=== PATIENT | female | born 1960 | race Caucasian/White ===

== ENCOUNTER 2021-05-24 19:23 | Emergency (ER) | payer MEDICAID, SELFPAY ==
[2021-05-24 19:27] VITALS: BP 140/90; PULSE 114; RESP 16; TEMP 36.4; O2SAT 97; BMI 28.3
--- NOTE | 2021-05-24 20:24 | ED.EYEPROB ---
HPI - Eye Problem General Chief complaint: Eye Problems Stated complaint: eye pain Time Seen by Provider: 05/24/21 20:08 Source: patient Mode of arrival: ambulatory Limitations: no limitations History of Present Illness HPI Narrative: Patient noticed redness on the sclera of the right eye since 13:00 without any straining or coughing had similar episode 3 years ago patient not on any anticoagulants no history of hypertension vital stable Related Data Allergies Allergy/AdvReac Type Severity Reaction Status Date / Time codeine [CODEINE] Allergy Intermediate HALLUCINATI Verified 05/24/21 20:02 ONS Review of Systems Review of Systems: Yes all other systems are reviewed and are negative PMFSH Past Medical History Medical History Asthma Hyperlipemia Social History Social History Advance Directives: No Advance Directives Information Provided: No Patient : No Physical Exam Vital Signs: Vital Signs: Last Vital Signs Temp 97.6 F 05/24/21 19:27 Pulse 114 H 05/24/21 19:27 Resp 16 05/24/21 19:27 BP 140/90 H 05/24/21 19:27 Pulse Ox 97 05/24/21 19:27 Body Mass Index 28.3 Const: General: no acute distress and well developed Orientation/consciousness: patient oriented x3 Eyes: Eyes/upper lids images: 1. Small sub conjunctival hemorrhage normal anterior chamber fundus normal Neuro: General: patient oriented x3 Discharge Plan Discharge Clinical Impression: Subconjunctival hemorrhage Qualifiers: Laterality: right Qualified Code(s): H11.31 - Conjunctival hemorrhage, right eye Patient Disposition: Home, Self-Care Instructions: Subconjunctival Hemorrhage (ED) Additional Instructions: Local care as advised Avoid straining Your redness of the right eye will get better in next 1 week to 10 days
== END 2021-05-24 21:01 | disposition home or self-care (01) ==
PROVIDERS: Emergency Provider Internal Medicine
DX: H11.31 Conjunctival hemorrhage, right eye (principal)
CPT/HCPCS: 99282; 99283; 99284

== ENCOUNTER 2021-06-23 10:36 | Outpatient (REF) | payer MEDICAID, SELFPAY ==
[2021-06-23 11:34] LABS: MANUAL DIFF FLAG NO
[2021-06-23 11:58] LABS: Basophils Percent Auto 0.3 % (0-2); Eosinophils Absolute Auto 0.1 X10*3/uL (0.0-0.4); Hematocrit 43.8 % (37-47); Hemoglobin 14.5 g/dl (12.0-16.0); Imm Gran Abs Auto 0.02 X10*3/uL (0.00-0.03); Imm Gran Pct Auto 0.3 % (0.0-0.4); Lymphocytes Absolute Auto 1.2 X10*3/uL (1.2-4.9); Lymphocytes Percent Auto 17.5 % (20-40); Mean Corpuscular HGB Conc 33.1 g/dl (31.0-35.0); Mean Corpuscular Hemoglobin 31.4 pg (27.0-33.0); Mean Corpuscular Volume 94.8 fL (80-98); Mean Platelet Volume 9.8 fL (9.4-12.3); Monocytes Absolute Auto 0.6 X10*3/uL (0.1-1.2); Monocytes Percent Auto 8.3 % (2-11); Neutrophils Absolute Auto 4.9 X10*3/uL (2.0-8.3); Neutrophils Percent Auto 71.6 % (45-73); Platelet Count 257 X10*3/uL (160-400); Red Blood Count 4.62 X10*6/uL (4.20-5.50); Red Cell Distribution Width 12.5 % (11.0-16.0); White Blood Count 6.9 X10*3/uL (4.8-10.8)
== END 2021-06-23 10:37 | disposition home or self-care (01) ==
LOC: HO.LAB 10:36
PROVIDERS: PCP General Practice; Visit Provider Internal Medicine Pulmonary Disease
DX: Z91.09 Other allergy status, other than to drugs and biological substances (principal); J45.909 Unspecified asthma, uncomplicated; E78.5 Hyperlipidemia, unspecified; Z88.6 Allergy status to analgesic agent
CPT/HCPCS: 36415; 82785; 85025; 86003; 99202

== ENCOUNTER 2021-07-07 09:50 | Outpatient (REF) | payer MEDICAID, SELFPAY ==
--- NOTE | 2021-07-07 10:00 | PFT_ITS ---
INDICATION: Dyspnea. SPIROMETRY: The FEV1 to FVC of 90% with an FEV1 of 1.73 L, which is 86% predicted and an FVC of 1.92 L, which is 74% predicted. No significant response to bronchodilators noted. Maximum voluntary ventilation 89% predicted. LUNG VOLUMES: Total lung capacity 73% predicted with an expiratory reserve volume of only 8% predicted. DIFFUSION CAPACITY: DLCO 100% predicted. COMPARISONS: None. INTERPRETATION: No obstructive ventilatory defect. No significant response to bronchodilators noted. Normal maximum voluntary ventilation. However, the patient does have a mild restrictive ventilatory defect. Therefore, interstitial lung conditions and/or neuromuscular conditions cannot be ruled out. Diffusion capacity is within normal limits. Clinical correlation warranted. Matt Foster MD MR/MODL / [id number]
== END 2021-07-07 09:51 | disposition home or self-care (01) ==
LOC: HO.RESP 09:50
PROVIDERS: PCP General Practice; Visit Provider Internal Medicine Pulmonary Disease
DX: J45.909 Unspecified asthma, uncomplicated (principal)
CPT/HCPCS: 94060; 94727; 94729

== ENCOUNTER 2021-07-22 13:53 | Emergency (ER) | payer MEDICAID, SELFPAY ==
--- NOTE | ~2021-07-22 | XR_ITS ---
EXAMINATION: XR CHEST CLINICAL INFORMATION: Cough with shortness of breath COMPARISON: February 05, 2016 TECHNIQUE: PA view of the chest was obtained. FINDINGS: No significant abnormality is noted involving the heart, lungs, mediastinum, bony thorax or soft tissues. XR/XR chest 1V IMPRESSION: No acute disease.
[2021-07-22 14:07] VITALS: BP 145/93; PULSE 110; RESP 20; TEMP 36.3; O2SAT 99; BMI 28.3
--- NOTE | 2021-07-22 14:25 | ED_ITS ---
HPI - URI/Sore Throat General Chief Complaint: Upper Respiratory Symptoms Stated Complaint: ASTHMA Time Seen by Provider: 07/22/21 14:25 Source: patient Mode of arrival: ambulatory Limitations: no limitations History of Present Illness HPI Narrative: 61-year-old female past medical history significant for asthma, and environmental allergies presents to the emergency department with complaints of productive cough x3 days. She states that the cough is intermittent throughout the day, but appears to be worse at night. She states that the cough is productive of thin clear/white sputum. She states that she has an albuterol pump at home, that she uses at times. She used it twice yesterday, but only once today.. She denies recent sick contacts, chest pain, shortness of breath, rhinorrhea, earache, sore throat, sinus pain/pressure, fevers, chills, nausea, vomiting, abdominal pain, weakness. She does not smoke cigarettes. She is not vaccinated against COVID-19. MD elicited complaint: cough Pertinent past history: asthma Onset (ago): day(s) (3) Consistency: intermittent Severity: moderate Description of mucous: clear and other (white/clear) Able to tolerate fluids by mouth: Yes Exacerbating factors: nothing Relieving factors: nothing Associated symptoms: denies other symptoms Treatments prior to arrival: none Related Data Previous Rx's Medication Instructions Recorded omalizumab 150 mg subcutaneous 375 mg SUBCUT Q2W 28 Days #6 ea 07/06/21 solution (Xolair) prednisone 20 mg tablet 40 mg PO DAILY 5 Days #10 tab 07/22/21 Allergies Allergy/AdvReac Type Severity Reaction Status Date / Time codeine [CODEINE] Allergy Intermediate HALLUCINATI Verified 07/07/21 11:10 ONS Review of Systems Review of Systems: Constitutional : No Weight loss, No Fever, No Chills, No Night Sweats, No Fatigue, No Malaise ENT/Mouth : No Hearing loss, No Ear Pain, No Nasal Congestion, No Sinus Pain, No Hoarseness, No sore throat, No Rhinorrhea, No Swallowing Difficulty Eyes: No Eye Pain, No Swelling, No Redness, No Foreign Body, No Discharge, No Vision Changes Cardiovascular : No Chest Pain, No SOB, No Dyspnea on Exertion, No Orthopnea, No Edema, No Palpitations Respiratory : + Cough, + Sputum, No Wheezing, No Smoke Exposure, No Dyspnea Gastrointestinal : No Nausea, No Vomiting, No Diarrhea, No Constipation, No abdominal Pain, No Hematochezia, No Melena Musculoskeletal : No joint pain, No Myalgias, No Joint SwellingSkin : No Skin Lesions, No rash Neuro : No Weakness, No Numbness, No Paresthesias, No Loss of Consciousness, No Dizziness, No Headache PMFSH Past Medical History Attestation statement: The following information was validated with the patient. Source: old records reviewed and nursing notes reviewed Medical History Asthma Hyperlipemia Social History Social History Advance Directives: No Advance Directives Information Provided: No Physical Exam Vital Signs: Vital Signs: Last Vital Signs Temp 97.4 F 07/22/21 14:07 Pulse 110 H 07/22/21 14:07 Resp 20 07/22/21 14:07 BP 145/93 H 07/22/21 14:07 Pulse Ox 99 07/22/21 14:07 Body Mass Index 28.3 vital signs have been reviewed as normal and appeared to be correct. Blood pressure normal. Heart rate slightly elevated 110. Respiration rate normal. Temperature normal. Oxygen saturation normal. Appearance: Alert. Oriented X3. No acute distress. No accessory muscle use Head: Normal external exam. Normocephalic. Atraumatic. Eyes: PERRLA. EOMI. Conjunctiva and sclera normal. Eyelids normal. ENT: Pharynx normal. Uvula midline. Moist mucous membranes. No trismus noted. No drooling noted. No muffled voice noted. Neck: Soft full range of motion, no JVD CVS: Heart regular rate and rhythm no murmurs and rubs Respiratory: Breath sounds are clear to auscultation bilaterally. No wheezing or stridor. No accessory muscle use noted. Abdomen: Soft nontender no rebound or guarding positive bowel sounds Skin: Skin warm and dry. Normal skin color. Normal skin turgor. No rashes/lesions/lacerations noted. Extremities: No lower extremity edema. Extremities exhibit normal range of motion. Extremities nontender. Neuro: Oriented X 3. No motor deficit. No sensory deficit. Reflexes normal. Course Reevaluation(s) Reevaluation #1: COVID negative. MDM - URI/Sore Throat MDM Narrative Medical decision making narrative: 61 yo female pas medical history significant for seasonal allergies, and asthma presents to the emergency department with 3 days of productive cough of white, thin clear/white sputum. She states that the cough is worse at night. Denies fevers, chills, chest pain, shortness of breath. Patient is not a smoker. Not vaccinated against COVID-19. Denies sick contacts. Upon physical examination lungs are clear bilaterally, no wheezes or adventitious lung sounds noted, S1 and S2 appreciated free of murmurs. No focal neuro deficits 5/5 strength upper and lower extremities. 2+ pulses equal bilateral upper and lower extremities. Abdomen soft nontender nondistended. No rhinorrhea noted. Moist mucous membranes. Patient is noted to be hypertensive, tachycardic, likely secondary to albuterol use. Plan at this time is to obtain a chest x-ray to rule out pneumonia, she will also be checked for COVID-19. Lab Data Labs: Lab Results 07/22/21 Range/Units 14:14 COVID-19 (DEREK) Negative (Negative) COVID-19 Clin Com See Note Imaging Data Chest x-ray: Radiologist's impression: [address] [address] XRay Report Signed Patient: Angy Tierney MR#: [id number] : 1960 Acct:[id number] Age/Sex: 61 / F ADM Date: 07/22/21 Loc: .ED Attending Dr: Ordering Physician: Micheal Berrios Date of Service: 07/22/21 Procedure(s): XR chest 1V Accession Number(s): [id number] cc: Micheal Berrios ~ EXAMINATION: XR CHEST CLINICAL INFORMATION: Cough with shortness of breath COMPARISON: February 05, 2016 TECHNIQUE: PA view of the chest was obtained. FINDINGS: No significant abnormality is noted involving the heart, lungs, mediastinum, bony thorax or soft tissues. XR/XR chest 1V IMPRESSION: No acute disease. ? Dictated By: Cordell Pretty MD Signed By: <Electronically signed by Cordell Pretty MD in OV> 07/22/21 1607 DD/ 1425 TD/TT:? [employer] Operator: SK Discharge Plan Discharge Clinical Impression: Cough, Bronchitis Patient Disposition: Home, Self-Care Instructions: Acute Bronchitis (ED), Acute Cough (ED) Additional Instructions: Follow-up with your primary care provider Use your inhaler at home as needed and as instructed. Return to the emergency department with new or worsening symptoms. Prescriptions: New prednisone 20 mg tablet 40 mg PO DAILY 5 Days Qty: 10 RF: 0 No Action Xolair 150 mg recon soln 375 mg subcut Q2W 28 Days Qty: 6 RF: 12 Referrals: Patricia Douglass MD [Primary Care Provider] - 2 days
[2021-07-22 14:33] LABS: COVID-19 Test Negative (Negative)
== END 2021-07-22 16:18 | disposition home or self-care (01) ==
PROVIDERS: Emergency Provider Emergency Medicine; PCP General Practice
DX: J40 Bronchitis, not specified as acute or chronic (principal); J45.909 Unspecified asthma, uncomplicated; Z20.822 Contact with and (suspected) exposure to COVID-19
CPT/HCPCS: 36415; 71045; 87635; 99283

== ENCOUNTER → 2021-08-16 10:02 | Outpatient (BNVA) | payer MEDICAID, SELFPAY | PROVIDERS: PCP General Practice; Visit Provider Internal Medicine Pulmonary Disease | DX: J45.909 Unspecified asthma, uncomplicated (principal); Z91.09 Other allergy status, other than to drugs and biological substances | CPT/HCPCS: 99212 ==

== ENCOUNTER → 2021-12-15 10:20 | Outpatient (BNVA) | payer MEDICAID, SELFPAY | PROVIDERS: PCP General Practice; Visit Provider Internal Medicine Pulmonary Disease | DX: Z13.89 Encounter for screening for other disorder (principal) ==

== ENCOUNTER 2021-12-30 10:46 | Outpatient (REF) | payer MEDICAID, SELFPAY | END 2021-12-30 10:47 | disposition home or self-care (01) | LOC: HO.MDS 10:46 | PROVIDERS: Visit Provider Internal Medicine Pulmonary Disease | DX: J45.50 Severe persistent asthma, uncomplicated (principal) | CPT/HCPCS: 96372; J2357 ==

== ENCOUNTER 2022-01-14 10:17 | Outpatient (REF) | payer MEDICAID, SELFPAY | END 2022-01-14 10:18 | disposition home or self-care (01) | LOC: HO.MDS 10:17 | PROVIDERS: Visit Provider Internal Medicine Pulmonary Disease | DX: J45.50 Severe persistent asthma, uncomplicated (principal) | CPT/HCPCS: 96372; J2357 ==

== ENCOUNTER → 2022-01-20 10:40 | Outpatient (BNVA) | payer MEDICAID, SELFPAY | PROVIDERS: PCP General Practice; Visit Provider Internal Medicine Pulmonary Disease | DX: J45.909 Unspecified asthma, uncomplicated (principal); Z91.09 Other allergy status, other than to drugs and biological substances | CPT/HCPCS: 99212 ==

== ENCOUNTER 2022-01-28 10:26 | Outpatient (REF) | payer MEDICAID, SELFPAY | END 2022-01-28 10:27 | disposition home or self-care (01) | LOC: HO.MDS 10:26 | PROVIDERS: Visit Provider Internal Medicine Pulmonary Disease | DX: J45.50 Severe persistent asthma, uncomplicated (principal) | CPT/HCPCS: 96372; J2357 ==

== ENCOUNTER 2022-02-11 14:07 | Outpatient (REF) | payer MEDICAID, SELFPAY | END 2022-02-11 14:08 | disposition home or self-care (01) | LOC: HO.MDS 14:07 | PROVIDERS: Visit Provider Internal Medicine Pulmonary Disease | DX: J45.50 Severe persistent asthma, uncomplicated (principal) | CPT/HCPCS: 96372; J2357 ==

== ENCOUNTER 2022-02-25 11:48 | Outpatient (REF) | payer MEDICAID, SELFPAY | END 2022-02-25 11:49 | disposition home or self-care (01) | LOC: HO.MDS 11:48 | PROVIDERS: Visit Provider Internal Medicine Pulmonary Disease | DX: J45.50 Severe persistent asthma, uncomplicated (principal) | CPT/HCPCS: 96372; J2357 ==

== ENCOUNTER 2022-03-11 11:43 | Outpatient (REF) | payer MEDICAID, SELFPAY | END 2022-03-11 11:44 | disposition home or self-care (01) | LOC: HO.MDS 11:43 | PROVIDERS: Visit Provider Internal Medicine Pulmonary Disease | DX: J45.50 Severe persistent asthma, uncomplicated (principal) | CPT/HCPCS: 96372; J2357 ==

== ENCOUNTER 2022-03-25 12:19 | Outpatient (REF) | payer MEDICAID, SELFPAY | END 2022-03-25 12:20 | disposition home or self-care (01) | LOC: HO.MDS 12:19 | PROVIDERS: Visit Provider Internal Medicine Pulmonary Disease | DX: J45.50 Severe persistent asthma, uncomplicated (principal) | CPT/HCPCS: 96372; J2357 ==

== ENCOUNTER 2022-07-25 13:20 | Outpatient (REF) | payer MEDICAID, SELFPAY ==
--- NOTE | ~2022-07-25 | XR_ITS ---
EXAMINATION: LEFT FIFTH DIGIT CLINICAL INFORMATION: Pain COMPARISON: None TECHNIQUE: 3 views FINDINGS: No fracture, dislocation or destructive process. XR/XR hand wrist LT IMPRESSION: Negative
== END 2022-07-25 13:21 | disposition home or self-care (01) ==
LOC: HO.XRAY 13:20
PROVIDERS: Absent Provider General Practice; PCP General Practice; Visit Provider Emergency Medicine
DX: M79.645 Pain in left finger(s) (principal); M79.89 Other specified soft tissue disorders
CPT/HCPCS: 73110; 73130

== ENCOUNTER 2023-07-25 11:36 | Outpatient (REF) | payer MEDICAID, SELFPAY ==
[2023-07-25 14:13] LABS: Anion Gap 12 (12-20); Blood Urea Nitrogen 13 mg/dL (9-16); Calcium 9.6 mg/dL (8.4-10.2); Carbon Dioxide 23 mmol/L (22-29); Chloride 110 mmol/L (96-108); Estimated Glomerular Filt Rate > 60; Glucose Random 123 mg/dL (60-115); Potassium 3.9 mmol/L (3.3-5.1); Sodium 141 mmol/L (135-145)
== END 2023-07-25 11:37 | disposition home or self-care (01) ==
LOC: HO.HHCL 11:36
PROVIDERS: Visit Provider General Practice
DX: R42 Dizziness and giddiness (principal); R10.9 Unspecified abdominal pain
CPT/HCPCS: 36415; 80048; 87338

== ENCOUNTER 2023-07-25 13:32 | Outpatient (REF) | payer MEDICAID, SELFPAY | END 2023-07-25 13:33 | disposition home or self-care (01) | LOC: HO.HHCLNP 13:32 | PROVIDERS: Visit Provider General Practice | DX: R10.9 Unspecified abdominal pain (principal) | CPT/HCPCS: 87338 ==

== ENCOUNTER 2023-07-26 11:53 | Outpatient (REF) | payer MEDICAID, SELFPAY | END 2023-07-26 11:54 | disposition home or self-care (01) | LOC: HO.HHCLNP 11:53 | PROVIDERS: Visit Provider General Practice | DX: Z13.89 Encounter for screening for other disorder (principal) ==

== ENCOUNTER 2024-01-22 10:30 | Outpatient (REF) | payer MEDICAID, SELFPAY ==
[2024-01-22 11:40] LABS: Estimated Average Glucose 128 mg/dL; Hemoglobin A1c % 6.1 % (<6.0)
[2024-01-22 12:14] LABS: Anion Gap 16 (12-20); Blood Urea Nitrogen 10 mg/dL (9-16); Calcium 10.3 mg/dL (8.4-10.2); Carbon Dioxide 24 mmol/L (22-29); Chloride 107 mmol/L (96-108); Cholesterol 246 mg/dL (<200); Estimated Glomerular Filt Rate > 60; Glucose Random 145 mg/dL (60-115); HDL Cholesterol 48 mg/dL (>40); LDL Cholesterol Calculated 168 mg/dL (<100); Potassium 4.1 mmol/L (3.3-5.1); Sodium 143 mmol/L (135-145); Triglycerides 153 mg/dL (<150)
[2024-01-22 12:31] LABS: TSH reflex Free T4 0.78 uIU/mL (0.32-4.0)
== END 2024-01-22 10:31 | disposition home or self-care (01) ==
LOC: HO.HHCL 10:30
PROVIDERS: Visit Provider General Practice
DX: Z00.00 Encounter for general adult medical examination without abnormal findings (principal)
CPT/HCPCS: 36415; 80048; 80061; 83036; 84443

== ENCOUNTER 2024-11-26 14:03 | Outpatient (REF) | payer MEDICAID, SELFPAY ==
--- NOTE | ~2024-11-26 | XR_ITS ---
EXAMINATION: XR FOOT 3 OR MORE VIEWS LEFT HISTORY: acute pain COMPARISON: Comparison is made with the prior examination dated 05/20/2016. FINDINGS: Three views of the left foot are submitted. Osseous mineralization is normal. There is no fracture or dislocation. The joint spaces are preserved. There is a soft tissue calcification at the plantar aspect of the foot without change. XR/XR foot LT min 3V IMPRESSION: No acute abnormality. No evidence of fracture of the left foot. Electronically signed by: Luis A Chou MD 11/26/2024 02:32 PM EDT
--- OUTSIDE RECORDS SUMMARY | 2024-11-26 17:13 | XMS_ITS | Encounter Summary ---
Author Organization [employer] Address [address] [place] [address] Care Team Providers Care Guard Museum Name Role Phone Patricia Douglass MD Primary Care Provider [phone] Reason for Visit * Reason Onset Date Comments recall 11/07/2024 Encounter Details Date Type Department Care Team ([facility] st Contact Info) Description 11/07/2024 Telephone [facility] MEDICINE [address] [place] [address] Patricia Douglass MD [address] [place], [place] [phone] recall Social History Tobacco Use Types Packs/Day Years Used Date Smoking Tobacco: Never Smokeless Tobacco: Never Alcohol Use Standard Drinks/Week Comments Never 0 (1 standard drink = 0.6 oz pur e alcohol) Depression Answer Date Recorded Patient Health Questionnaire-9 Score 10 03/25/2024 Patient Health Questionnaire-9 Score 10 03/25/2024 Last PHQ-9: Questionnaire Data Not on file 0 03/25/2024 Housing Stability Answer Date Recorded What is your housing situation today? I have housing today, but I am worried about losing housing in the future 01/19/[address] you li ve. Do you have problems with any of the following? None of the above 01/19/2024 Food Insecurity Answer Date Recorded Within the past 12 months, y ou worried that your food would run out before you got money to buy more: Sometimes True 2023 Within the past 12 months,th e food you bought just didn't last and you didn't have enough money to get more: Never True 01/19/2024 Transportation Answer Date Recorded In the past 12 months, has l ack of transportation kept you from medical appts, meetings, work or from getting things needed for daily living? No 07/17/2023 Utilities Answer Date Recorded In the past 12 months, has t he electric, gas, oil or water company threatened to shut off services in your home? I am not sure 01/19/2024 Depression Answer Date Recorded Patient Health Questionnaire-2 Score 3 03/25/2024 Comments Unknown Sex and Gender Information Value Date Recorded Sex Assigned at Female 07/18/2022 10:14 AM EDT Legal Sex Female 10:14 AM EDT Gender Identity Female 07/18/2022 10:14 AM EDT Sexual Orientation Straight 07/18/2022 10 :14 AM EDT documented as of this encounter Miscellaneous Notes * Telephone Encounter - Laurita Cohen MA - 11/07/2024 1:45 PM EST Telephone call to patient to schedule a recall appointment. No answer, Left voicemail to return call to clinic.. Recall letter sent. Visit type: Physical Appointment notes: Physical Month due: January With: Rafat Please schedule appointment above if patient returns call documented in this encounter Plan of Treatment Not on file documented as of this encounter Visit Diagnoses Not on filedocumented in this encounter Additional Health Concerns Assessment Noted Time PHQ-9 Depression Total Score: 10 024 10:49 AM EDT documented as of this encounter Care Teams Guard Museum Relationship Specialty Start Date End Date Patricia Douglass MD [address] [place] [id number] PCP - General Family Medicine 05/18/20 documented as of this encounter
--- OUTSIDE RECORDS SUMMARY | 2024-11-26 17:13 | XMS_ITS | Encounter Summary ---
Author Organization [employer] Address [address] [place] [address] Care Team Providers Care Ip Attorney Name Role Phone Patricia Douglass MD Primary Care Provider [phone] Reason for Visit * Reason Comments Med Refill Encounter Details Date Type Department Care Team (Late st Contact Info) Description 08/18/2024 Refill [facility] MEDICINE [address] [place], [place] [phone] Patricia Douglass MD [address] [place], [place] [phone] Gastroesophageal reflux disease with esophagitis without hemorrhage Social History Tobacco Use Types Packs/Day Years [...] AM EDT documented as of this encounter Plan of Treatment Not on file documented as of this encounter Visit Diagnoses Diagnosis Gastroesophageal reflux disease with esophagitis without hemorrhage documented in this encounter Additional Health Concerns Assessment Noted Time PHQ-9 Depression Total Score: 10 024 10:49 AM EDT documented as of this encounter Care Teams Ip Attorney Relationship Specialty Start Date End Date Patricia Douglass MD [address] [place] [id number] PCP - General Family Medicine 05/18/20 documented as of this encounter
--- OUTSIDE RECORDS SUMMARY | 2024-11-26 17:13 | XMS_ITS | Encounter Summary ---
Author Organization [employer] Address [address] [place] [address] Care Team Providers Care Mercerizing Range Controller Name Role Phone Patricia Douglass MD Primary Care Provider [phone] Encounter Details Date Type Department Care Team (Late st Contact Info) Description 08/08/2023 Abstract [facility] MEDICINE [address] [place], [place] [phone] Ary Wilson Social History Tobacco Use Types Packs/Day Years Used Date Smoking Tobacco: Never Smokeless Tobacco: Never Depression Answer Date Recorded Patient Health Questionnaire-9 Score 4 07/17/2023 Patient Health Questionnaire-9 Score 4 07/17/2023 Last PHQ-9: Questionnaire Data Not on file 1 Housing Stability Answer Date Recorded What is your housing situation today? I have agustin bray 07/17/[address] you li ve. Do you have problems with any of the following? None of the above 07/17/2023 Food Insecurity Answer Date Recorded Within the past 12 months, y ou worried that your food would run out before you got money to buy more: Never True 07/17/2023 Within the past 12 months,th e food you bought just didn't last and you didn't have enough money to get more: Never True Transportation Answer Date Recorded In the past 12 months, has l ack of transportation kept you from medical appts, meetings, work or from getting things needed for daily living? No 07/17/2023 Utilities Answer Date Recorded In the past 12 months, has t he electric, gas, oil or water company threatened to shut off services in your home? No 07/17/2023 Depression Answer Date Recorded Patient Health Questionnaire-2 Score 0 07/17/2023 Comments Unknown Sex and Gender Information Value Date Recorded Sex Assigned at Female 07/18/2022 10:14 AM EDT Legal Sex Female 10:14 AM EDT Gender Identity Female 07/18/2022 10:14 AM EDT Sexual Orientation Straight 07/18/2022 10 :14 AM EDT documented as of this encounter Plan of Treatment Not on file documented as of this encounter Procedures Procedure Name Priority Date/Time Associated Diagnosis Comments COLONOSCOPY Routine 03/26/2013 documented in this encounter Results * Hm Colonoscopy (03/26/2013) Colonoscopy Normal Normal Narrative Ary Wilson - 03/26/2013 Repeat in 5 years us Historical Provider HEALTH MAINTENANCE Final Result documented in this encounter Visit Diagnoses Not on filedocumented in this encounter Additional Health Concerns Assessment Noted Time PHQ-9 Depression Total Score: 4 07/17/20 23 11:02 AM EDT documented as of this encounter Care Teams Mercerizing Range Controller Relationship Specialty Start Date End Date Patricia Douglass MD [address] [place] [address] PCP - General Family Medicine 05/18/20 documented as of this encounter
--- OUTSIDE RECORDS SUMMARY | 2024-11-26 17:13 | XMS_ITS | Encounter Summary ---
Author Organization [employer] Address [address] [place] [address] Care Team Providers Care Charge Weigher Name Role Phone Patricia Douglass MD Primary Care Provider [phone] Encounter Details Date Type Department Care Team (Late st Contact Info) Description 08/07/2023 Orders Only [facility] MEDICINE [address] [place], [place] [phone] Patricia Douglass MD [address] [place], [place] [phone] Gastroesophageal reflux disease with esophagitis without hemorrhage (Primary Dx) Social History Tobacco Use Types Packs/Day Years [...] Diagnosis Gastroesophageal reflux disease with esophagitis without hemorrhage- Primary documented in this encounter Additional Health Concerns Assessment Noted Time PHQ-9 Depression Total Score: 4 07/17/20 23 11:02 AM EDT documented as of this encounter Care Teams Charge Weigher Relationship Specialty Start Date End Date Patricia Douglass MD [address] [place] [address] PCP - General Family Medicine 05/18/20 documented as of this encounter
--- OUTSIDE RECORDS SUMMARY | 2024-11-26 17:14 | XMS_ITS | Encounter Summary ---
Author Organization [employer] Address [address] [facility] [address] [place] [address] Care Team Providers Care Technician Name Role Phone Patricia Douglass MD Primary Care Provider [phone] Reason for Referral * Consultation (Urgent) - Pending Review Specialty Diagnoses / Procedures Referred By Leodan velazquez Referred To Contact Podiatry Diagnoses Pain of left heel Janice Baum MD [address] [place] [id number] Phone: tel: fax: Referral ID Status Reason Start Date Expiration Date Visits Requested Visits Authorized [id number] Pending Review Specialty Services Required 11/26/2024 11/26/2025 1 1 Encounter Details Date Type Department Care Team (Late st Contact Info) Description 11/26/2024 1:20 PM EDT Office Visit [facility] [address] [place] [id number] Janice Baum MD [address] [place] [phone] Pain of left heel Social History Tobacco Use Types Packs/Day Years [...] AM EDT documented as of this encounter Last Filed Vital Signs Vital Sign Reading Time Taken Comments Blood Pressure 143/97 11/26/2024 1:18 PM EDT Pulse 100 11/26/2024 1:18 PM EDT Temperature 36.6 ??C (97.8 ??F) 11/26/2024 1:18 PM ED T Respiratory Rate 20 11/26/2024 1:18 PM EDT Oxygen Saturation 96% 11/26/2024 1:18 PM EDT Inhaled Oxygen Concentration - - Weight 62.6 kg (138 lb) 11/26/2024 1:18 PM EDT Height 149.9 cm (4' 11 ) 11/26/2024 1:18 PM EDT Body Mass Index 27.87 11/26/2024 1:18 PM EDT documented in this encounter Progress Notes * Janice Johns MD - 11/26/2024 1:20 PM EDT Images from the original note were not included. SUBJECTIVE: Angy Tierney is a 64 y.o. year old female who presents for left heel pain . Acute Concerns: 2 weeks of acute left heel pain, report pain when she bears weight on the area, she has tried acetaminophen, ibuprofen and many creams but did not help Social History Social History Narrative Lives alone retired Patient Active Problem List Diagnosis Anxious depression Allergic rhinitis Arthropathy Asthma Functional disorder of bladder Impaired glucose tolerance Pure hypercholesterolemia Varicose veins Mixed anxiety and depressive disorder Other fatigue Cold intolerance Osteopenia of hip Primary insomnia Depression, recurrent (CMS/HCC) Pain of left heel No family history on file. Review of Systems Constitutional: Negative. HENT: Negative. Respiratory: Negative. Cardiovascular: Negative. Musculoskeletal: Left heel pain OBJECTIVE: Vitals: 11/26/24 1318 BP: (!) 143/97 BP Location: Left arm Patient Position: Sitting BP Cuff Size: Adult Pulse: 100 Resp: 20 Temp: 97.8 ??F (36.6 ??C) TempSrc: Oral SpO2: 96% Weight: 138 lb (62.6 kg) Height: 4' 11 (1.499 m) Physical Exam Constitutional: Appearance: Normal appearance. Cardiovascular: Rate and Rhythm: Normal rate and regular rhythm. Pulmonary: Effort: Pulmonary effort is normal. Breath sounds: Normal breath sounds. Abdominal: General: Abdomen is flat. Palpations: Abdomen is soft. Musculoskeletal: Feet: Feet: Comments: Localized pain on the left heel Neurological: Mental Status: She is alert. Follow Up: No follow-ups on file. Current Outpatient Medications on File Prior to Visit Medication Sig Dispense Refill albuterol (2.5 MG/3ML) 0.083% nebulizer solution INHALE 3ML VIA NEBULIZER THREE TIMES A DAY 90 mL 11 diphenhydrAMINE (Banophen) 25 MG tablet Take 1 tablet by mouth every 4 (four) hours. FLUoxetine (PROzac) 20 MG capsule Take 1 capsule (20 mg) by mouth Once daily. 90 capsule 3 fluticasone-salmeterol (Advair HFA) 230-21 MCG/ACT inhaler INHALE 2 PUFFS BY MOUTH TWICE DAILY IN THE MORNING AND IN THE EVENING 12 g 11 ibuprofen 600 MG tablet TAKE 1 TABLET BY MOUTH EVERY 8 HOURS NEEDED FOR MILD PAIN 60 tablet 3 LORazepam (Ativan) 0.5 MG tablet Take 0.5 tablets (0.25 mg) by mouth every 12 (twelve) hours if needed for anxiety. 30 tablet 5 meclizine (Antivert) 25 MG tablet TAKE 1 TABLET BY MOUTH THREE TIMES DAILY IN THE MORNING, AT NOON,AND AT BEDTIME FOR DIZZINESS 30 tablet 3 Menthol-Methyl Salicylate (Thera-Gesic) 0.5-15 % cream massage into affected part of R arm two times a day montelukast (Singulair) 10 MG tablet TAKE 1 TABLET BY MOUTH DAILY IN THE MORNING 90 tablet 3 nortriptyline (Pamelor) 10 MG capsule Take 1 capsule (10 mg) by mouth at bedtime. 90 capsule 3 omalizumab (Xolair) 150 MG/ML injection Inject under the skin every 4 (four) weeks. rosuvastatin (Crestor) 20 MG tablet Take 1 tablet (20 mg) by mouth Once per day. 90 tablet 3 Ventolin HFA 108 (90 Base) MCG/ACT inhaler INHALE 2 PUFFS NEEDED IN THE MORNING, NOON, IN THE EVENING, AND AT BEDTIME FOR FOR WHEEZING OR SHORTNESS OF BREATH 18 g 11 No current facility-administered medications on file prior to visit. Problem List Items Addressed This Visit Pain of left heel Likely hill sprue/plantar fasciitis I will prescribe diclofenac gel to apply twice a day as needed Alternate acetaminophen and ibuprofen as needed I printed for patient information about her condition and to do exercise at home I refer patient to podiatry Relevant Medications Diclofenac Sodium 1 % gel Other Relevant Orders XR Foot 3+ Views Left (Completed) Referral to Podiatry documented in this encounter Miscellaneous Notes * Assessment & Plan Note - Janice Johns MD - 11/26/2024 4:02 PM EDT Associated Problem(s): Pain of left heel Likely hill sprue/plantar fasciitis I will prescribe diclofenac gel to apply twice a day as needed Alternate acetaminophen and ibuprofen as needed I printed for patient information about her condition and to do exercise at home I refer patient to podiatry documented in this encounter Plan of Treatment Scheduled Referrals Name Type Priority Associated Diagnoses Orde r Schedule Referral to Podiatry Outpatient Referral Urgent Pain of left heel Expected: 11/26/2024 (Approximate), Expires: 11/26/2025 documented as of this encounter Procedures Procedure Name Priority Date/Time Associated Diagnosis Comments XR FOOT 3+ VIEWS LEFT Routine 11/26/2024 2:04 PM EDT Pain of left heel documented in this encounter Results * XR Foot 3+ Views Left (11/26/2024 2:04 PM EDT) Anatomical Region Laterality Modality Lower Extremities, Foot Left Radiogra phic Imaging 11/26/2024 2:04 PM EDT Narrative 11/26/2024 2:35 PM EDT ?[facility] ?[address] ?[place] [address] ?XRay Report ? Signed ? Patient: Angy Tierney ?MR#: [id number] ?? [id number] ? : 1960 ?Acct:[id number] ? Age/Sex: 64 / F ?ADM Date: 11/26/24 ? Loc: HO.HHCX ? Attending Dr: Janice Johns MD ? Ordering Physician: Janice Baum MD ?? Date of Service: 11/26/24 ?? Procedure(s): XR foot LT min 3V ?? Accession Number(s): [id number] ? cc: Janice Baum MD ? EXAMINATION: ??XR FOOT 3 OR MORE VIEWS LEFT ? HISTORY: acute pain ? COMPARISON: Comparison is made with the prior examination dated ?? 05/20/2016. ? FINDINGS: ? Three views of the left foot are submitted. ??Osseous mineralization is ?? normal. ??There is no fracture or dislocation. ??The joint spaces are ?? preserved. ??There is a soft tissue calcification at the plantar aspect ?? of the foot without change. ? XR/XR foot LT min 3V ?? IMPRESSION: ? No acute abnormality. No evidence of fracture of the left foot. ? Electronically signed by: ??Luis A Chou MD ??11/26/2024 02:32 PM EDT ?? RP ? Dictated By: ?Luis A Chou MD ? Signed By: ?<Electronically signed by Luis A Chou MD in OV> ?11/26/24 1432 ? DD/ 1404 ? TD/TT: 11/26/24 1420 ? [employer]: ? Procedure Note Donbob, Image - 11/26/[address] [address] XRay Report Signed Patient: Wale Tierney#: [id number] : 9Acct:[id number] Age/Sex: 64 / FADM Date: 11/26/24 Loc: HO.HHCX Attending Dr: Janice Johns MD Ordering Physician: Janice Baum MD Date of Service: 11/26/24 Procedure(s): XR foot LT min 3V Accession Number(s): [id number] cc: Janice Baum MD EXAMINATION: XR FOOT 3 OR MORE VIEWS LEFT HISTORY: acute pain COMPARISON: Comparison is made with the prior examination dated 05/20/2016. FINDINGS: Three views of the left foot are submitted. Osseous mineralization is normal. There is no fracture or dislocation. The joint spaces are preserved. There is a soft tissue calcification at the plantar aspect of the foot without change. XR/XR foot LT min 3V IMPRESSION: No acute abnormality. No evidence of fracture of the left foot. Electronically signed by: Luis A Chou MD 11/26/2024 02:32 PM EDT Dictated By: Luis A Chou MD Signed By: <Electronically signed by Luis A Chou MD in OV> 11/26/24 1432 DD/ 1404 TD/TT: 11/26/24 1420 [employer]: Janice Johns MD IMG XR PROCEDURES Fin al Result documented in this encounter Visit Diagnoses Diagnosis Pain of left heel documented in this encounter Additional Health Concerns Assessment Noted Time PHQ-9 Depression Total Score: 10 024 10:49 AM EDT documented as of this encounter Care Teams Technician Relationship Specialty Start Date End Date Patricia Douglass MD [address] [place] [address] PCP - General Family Medicine 05/18/20 documented as of this encounter
--- OUTSIDE RECORDS SUMMARY | 2024-11-26 17:14 | XMS_ITS | Encounter Summary ---
Author Organization [employer] Address [address] [place] [address] Care Team Providers Care Flarer Name Role Phone Patricia Douglass MD Primary Care Provider [phone] Reason for Visit * Reason Comments Med Refill Encounter Details Date Type Department Care Team (Late st Contact Info) Description 03/03/2024 Refill [facility] [address] [place] [address] Jalen Herring FNP Anxious depression Social History Tobacco Use Types Packs/Day Years Used Date Smoking Tobacco: Never Smokeless Tobacco: Never Depression Answer Date Recorded Patient Health Questionnaire-9 Score 7 01/23/2024 Patient Health Questionnaire-9 Score 7 01/23/2024 Last PHQ-9: Questionnaire Data Not on file 0 01/23/2024 Housing Stability Answer Date Recorded What is [...] Answer Date Recorded Patient Health Questionnaire-2 Score 1 01/23/2024 Comments Unknown Sex and Gender Information Value Date Recorded Sex Assigned at Female 07/18/2022 10:14 AM EDT Legal Sex Female 10:14 AM EDT Gender Identity Female 07/18/2022 10:14 AM EDT Sexual Orientation Straight 07/18/2022 10 :14 AM EDT documented as of this encounter Plan of Treatment Not on file documented as of this encounter Visit Diagnoses Diagnosis Anxious depression documented in this encounter Additional Health Concerns Assessment Noted Time PHQ-9 Depression Total Score: 7 01/23/20 24 10:45 AM EDT documented as of this encounter Care Teams Flarer Relationship Specialty Start Date End Date Patricia Douglass MD [address] [place] [phone] PCP - General Family Medicine 05/18/20 documented as of this encounter
--- OUTSIDE RECORDS SUMMARY | 2024-11-26 17:14 | XMS_ITS | Clinical Summary ---
Author Organization [employer] Address [address] [place] [address] [address] [place] [address] Care Team Providers Care Lamination Technician Name Role Phone Patricia Douglass MD Primary Care Provider [phone] Allergies Active Allergy Reactions Criticality Noted Date Comments Chlorpheniramine 01/25/2012 Other reaction(s): anxiety Codeine 01/25/2012 Other reaction(s): anxiety Phenylephrine 01/25/2012 Other reaction(s): anxiety Medications diphenhydrAMINE (Banophen) 25 MG tablet Take 1 tablet by mouth every 4 (four) hours. 1 Active Menthol-Methyl Salicylate (Thera-Gesic) 0.5-15 % cream massage into affected part of R arm two times a day 1 Active omalizumab (Xolair) 150 MG/ML injection Inject under the skin every 4 (four) weeks. Active ibuprofen 600 MG tablet TAKE 1 TABLET BY MOUTH EVERY 8 HOURS NEEDED FOR MILD PAIN 60 tablet 3 4 Active montelukast (Singulair) 10 MG tablet TAKE 1 TABLET BY MOUTH DAILY IN THE MORNING 90 tablet 3 4 Active albuterol (2.5 MG/3ML) 0.083% nebulizer solution INHALE 3ML VIA NEBULIZER THREE TIMES A DAY 90 mL 11 4 Active Ventolin HFA 108 (90 Base) MCG/ACT inhaler INHALE 2 PUFFS NEEDED IN THE MORNING, NOON, IN THE EVENING, AND AT BEDTIME FOR FOR WHEEZING OR SHORTNESS OF BREATH 18 g 11 4 Active meclizine (Antivert) 25 MG tablet TAKE 1 TABLET BY MOUTH THREE TIMES DAILY IN THE MORNING, AT NOON, AND AT BEDTIME FOR DIZZINESS 30 tablet 3 4 Active LORazepam (Ativan) 0.5 MG tabletIndicatio ns:Anxious depression Take 0.5 tablets (0.25 mg) by mouth every 12 (twelve) hours if needed for anxiety. 30 tablet 5 4 Active nortriptyline (Pamelor) 10 MG capsule Take 1 capsule (10 mg) by mouth at bedtime. 90 capsule 3 4 Active fluticasone-claribel meterol (Advair HFA) 230-21 MCG/ACT inhaler INHALE 2 PUFFS BY MOUTH TWICE DAILY IN THE MORNING AND IN THE EVENING 12 g 11 4 Active rosuvastatin (Crestor) 20 MG tablet Take 1 tablet (20 mg) by mouth Once per day. 90 tablet 3 4 Active FLUoxetine (PROzac) 20 MG capsuleIndicati ons:Anxious depression Take 1 capsule (20 mg) by mouth Once daily. 90 capsule 3 4 Active Diclofenac Sodium 1 % gelIndications: Pain of left heel Apply 1 Application topically every 12 (twelve) hours if needed (apply on affected area). 150 g 1 5 Active Active Problems Problem Noted Date Diagnosed Date Pain of left heel 11/26/2024 Assessment & Plan (11/26/2024 4:02 PM EDT): Likely hill sprue/plantar fasciitis I will prescribe diclofenac gel to apply twice a day as needed Alternate acetaminophen and ibuprofen as needed I printed for patient information about her condition and to do exercise at home I refer patient to podiatry Depression, recurrent 05/27/2024 Osteopenia of hip 01/24/2024 Primary insomnia 01/24/2024 Other fatigue 01/13/2023 Assessment & Plan (01/13/2023 11:08 AM EDT): Labs today Walk daily, if possible Cold intolerance 01/13/2023 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 Continue Nortriptyline 10 mg at bedtime, Fluoxetine 20 mg (so will be cognizant of risk of drug interaction and serotonin syndrome, and limit to lowest effective doses). Also continue Lorazepam 0.5 mg 1/2 tab BID prn, and Zolpidem 5 mg at bedtime prn. F/U with therapist as usual and may be referred to agency prescriber. Otherwise, patient's PCP will manage her medications. Any issues or concerns, contact [facility]. All her questions were answered and I have wished her well. She agrees with the plan. Assessment & Plan (01/23/2024 11:56 AM EDT): Currently very anxious about impending switch to Medicare coverage and didn't understand coverage options. Will contact Medicare office and ask about Advant[employer] plans. Once this is in place she will be able to start with agency psychiatric prescriber. Meanwhile, continue current regimen: Nortriptyline 10 mg at bedtime, Fluoxetine 20 mg (so will be cognizant of risk of drug interaction and serotonin syndrome, and limit to lowest effective doses). Also continue Lorazepam 0.5 mg 1/2 tab BID prn, and Zolpidem 5 mg at bedtime prn. F/U with therapist as usual and F/U with me in 2 months. She agrees with the plan. Assessment & Plan (11/23/2023 4:40 PM EST): Depressed r/t recent of sibling. Also lost long-term therapist who left the practice, but has started with new therapist. Still finding current regimen helpful and will continue Nortriptyline 10 mg at bedtime, Fluoxetine 20 mg (so will be cognizant of risk of drug interaction and serotonin syndrome, and limit to lowest effective doses). Also continue Lorazepam 0.5 mg 1/2 tab BID prn, and Zolpidem 5 mg at bedtime prn. On 07/17/2023 provider informed pt that I would be retiring, and suggested she request referral to agency psychiatrist. F/U with me in 2 months. She agrees with the plan. Assessment & Plan (09/19/2023 10:36 AM EST): Depressed r/t recent of sibling. Also lost long-term therapist who left the practice, but will be transferred to a new therapist. Still finding current regimen helpful and will continue Nortriptyline 10 mg at bedtime, Fluoxetine 20 mg (so will be cognizant of risk of drug interaction and serotonin syndrome, and limit to lowest effective doses). Also continue Lorazepam 0.5 mg 1/2 tab BID prn, and Zolpidem 5 mg at bedtime prn. On 07/17/2023 provider informed pt that I would be retiring, and suggested she request referral to agency psychiatrist. F/U with me in 2 months. She agrees with the plan. Assessment & Plan (07/26/2023 1:45 PM EST): Prescriber regimen: Nortriptyline 10 mg at bedtime, Fluoxetine 20 mg PRN benzos: Lorazepam 0.5 mg 1/2 tab BID prn, and Zolpidem 5 mg at bedtime prn, using them every few days Assessment & Plan (07/17/2023 12:17 PM EDT): Still doing well with current regimen: Nortriptyline 10 mg at bedtime, Fluoxetine 20 mg (so will be cognizant of risk of drug interaction and serotonin syndrome, and limit to lowest effective doses). Also continue Lorazepam 0.5 mg 1/2 tab BID prn, and Zolpidem 5 mg at bedtime prn. Continue with therapist. Today 07/17/2023 provider informed pt that I would be retiring within the next year or so, and suggested she request referral to agency psychiatrist. F/U with me in 2 months. She agrees with the plan. Assessment & Plan (05/01/2023 10:11 AM EDT): Happy with Nortriptyline 10 mg at bedtime. She is also on Fluoxetine 20 mg so will be cognizant of risk of drug interaction and serotonin syndrome, and limit to lowest effective doses. Also continue Lorazepam 0.5 mg 1/2 tab BID prn, and Zolpidem 5 mg at bedtime prn. Continue with therapist. F/U with me in 2 months. She agrees with the plan. Assessment & Plan (02/27/2023 11:53 AM EDT): Has found Doxepin 10 mg causes morning fatigue and dizziness. Will stop that now and instead have Nortriptyline 10 mg at bedtime. She is also on Fluoxetine 20 mg so will be cognizant of risk of drug interaction and serotonin syndrome, and limit to lowest effective doses. If the Nortriptyline is helpful she may be able to give up the Zolpidem. Meanwhile continue other meds as usual: Fluoxetine 20 mg 1 capsule daily, Lorazepam 0.5 mg 1/2 tab BID prn, and Zolpidem 5 mg at bedtime prn. Continue with therapist. F/U with me in 2 months. She agrees with the plan. Assessment & Plan (01/13/2023 11:07 AM EDT): Seeing Jalen Herring for medication mgmt Assessment & Plan (01/10/2023 4:41 PM EDT): Not doing as well with more anxiety and poor sleep. She previously trialed Trazodone but recalls feeling choking . Will start Doxepin 10 mg. She is also on Fluoxetine 20 mg so will be cognizant of risk of drug interaction and serotonin syndrome, and limit to lowest effective doses. If the Doxepin is helpful she may be able to give up the Zolpidem. Meanwhile continue other meds as usual: Fluoxetine 20 mg 1 capsule daily, Lorazepam 0.5 mg 1/2 tab BID prn, and Zolpidem 5 mg at bedtime prn. Continue with therapist. F/U with me in 6 weeks. She agrees with the plan. Assessment & Plan (10/25/2022 3:17 PM EST): Feels meds are working fine and will continue Fluoxetine 20 mg 1 capsule daily, Lorazepam 0.5 mg 1/2 tab BID prn, and Zolpidem 5 mg a bedtime prn. Continue with therapist. 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 Asthma 03/14/2012 Assessment & Plan (07/26/2023 1:43 PM EST): Continue Xolair injection Advair, ABHISHEK prn Allergy meds Assessment & Plan (01/13/2023 11:07 AM EDT): Continue Xolair injection Advair, ABHISHEK prn Allergy meds Pure hypercholesterolemia 03/14/2012 Functional disorder of bladder 09/18/2004 Encounters Date Type Department Care Team Description 11/26/2024 1:20 PM EDT Office Visit [facility] [address] [place] [phone] Janice Baum MD Pain of left heel 11/07/2024 Telephone [facility] MEDICINE [address] [place] [phone] Patricia Douglass MD recall 09/06/2024 Telephone [facility] MEDICINE [address] [place] [address] [phone] Patricia Douglass MD Prior Authorization ([facility] Request: Advair HFA 230-21 mcg) from Last 3 Months Immunizations Name Administration Dates Next Due Hep A, Adult 01/05/2024,06/30/2023 Influenza Injectable Quadriv alant Preservative Free IIV4 MDCK 06/11/2019,06/01/2018 Influenza injectable quadriv alent IIV4 with preservative 10/19/2017,09/02/2015 Influenza injectable quadriv alent preservative free 07/24/2023,06/29/2022,06/08/2021,06/17 Influenza, IIV3, injectable 06/23/2016, 4,05/26/2011 Influenza, Split (incl. brandyn fied surface antigen) 06/05/2013,05/28/2012 Pneumococcal Conjugate PCV 20 01/19/2024 Pneumococcal Polysaccharide PPSV23 05/26/2011, TD (adult), 2 Lf tetanus tox oid, preservative free, adsorbed 07/29/2022,07/19/1994 Tdap 05/26/2011 Zoster, Recombinant 09/23/2020,07/24/2020 Social History Tobacco Use Types Packs/Day Years Used Date Smoking Tobacco: Never Smokeless Tobacco: Never Tobacco Cessation:Counseling Given: Not Answered Alcohol Use Standard Drinks/Week Comments Never 0 [...] Orientation Straight 07/18/2022 10 :14 AM EDT Last Filed Vital Signs Vital Sign Reading [...] Mass Index 27.87 11/26/2024 1:18 PM EDT Plan of Treatment Health Maintenance Due Date Last Done Comments CT Colonography 1959 FIT DNA/Cologuard 1959 FIT 1959 FOBT 1959 Sigmoidoscopy 1959 Alcohol/Substance Use Screening 1971 Pap Smear 1980 Cervical Cancer Screening 1989 HPV/Cotest 1989 Colonoscopy 03/26/2018 03/26/2013 Colorectal Cancer Screening 03/26/2018 RSV Patients and Patients Aged 60 years or older (1 - Risk 60-74 years 1-dose series) 2019 Mammogram 12/11/2020 12/11/2018, 12/27/2017 COVID-19 Vaccine ( season) 2024 Influenza Vaccine (#1) 2024 , 06/29/2022, 06/08/2021, Additional history exists Depression Monitoring (PHQ-9) 09/25/2024 03/25/2024, 03/25/2024 SDOH Screening 01/18/2025 01/19/2024 Diabetes: Hemoglobin A1C 01/21/2025 024, 08/02/2022, 07/24/2020 Depression Screening 03/25/2025 03/25/2024, 03/25/20 24 Tobacco Screening 11/26/2025 11/26/2024 DTaP/Tdap/Td Vaccines (3 - Td or Tdap) 07/29/2032 07/29/2022, 05/26/2011, 07/19/1994 Zoster Vaccines Completed 09/23/2020, 07/24/2020 Hepatitis C Screening Completed 01/13/2023, 022 Hepatitis A Vaccines Aged Out 01/05/2024, 06/30/20 23 No longer eligible based on patient's age to complete this topic Pneumococcal Vaccine: 50+ Years Completed 01/19/2024, 05/26/2011, 06/20/1997 HIB Vaccines Aged Out No longer eligi ble based on patient's age to complete this topic HPV Vaccines Aged Out No longer eligi ble based on patient's age to complete this topic Hepatitis B Vaccines Aged Out No long er eligible based on patient's age to complete this topic IPV Vaccines Aged Out No longer eligi ble based on patient's age to complete this topic Meningococcal Vaccine Aged Out No willie nini eligible based on patient's age to complete this topic RSV under 20 months Aged Out No longe r eligible based on patient's age to complete this topic Rotavirus Vaccines Aged Out No longer eligible based on patient's age to complete this topic Procedures Procedure Name Priority Date/Time Associated Diagnosis Comments XR FOOT 3+ VIEWS LEFT Routine 11/26/2024 2:04 PM EDT Pain of left heel HEMOGLOBIN A1C Routine 01/22/2024 10:42 AM EDT Annual physical exam HEPATITIS C AB W/REFL TO HCV RNA, QN, PCR Routine 01/13/2023 11:04 AM EDT Other fatigue BI MAMMOGRAM DIAGNOSTIC BILATERAL Routine 12/11/2018 2:30 PM EDT HM COLONOSCOPY Routine 03/26/2013 from Last 3 Months or Most Recently Relevant to Health Maintenance Results * XR Foot 3+ Views Left (11/26/2024 2:04 PM EDT) Anatomical Region Laterality Modality Lower Extremities, Foot Left Radiogra phic Imaging 11/26/2024 2:04 PM EDT Narrative 11/26/2024 2:35 PM EDT ?[facility] ?[address] ?[place] [address] ?XRay Report ? Signed ? Patient: Niall,Angy ?MR#: [id number] ?? [id number] ? : 1960 ?Acct:[id number] ? Age/Sex: 64 / F ?ADM Date: 11/26/24 ? Loc: HO.HHCX ? Attending Dr: Janice Johns MD ? Ordering Physician: Janice Baum MD ?? Date of Service: 11/26/24 ?? Procedure(s): XR foot LT min 3V ?? Accession Number(s): [id number] ? cc: Janice Baum MD ? EXAMINATION: [...] A Chou MD ??11/26/2024 02:32 PM EDT ? Dictated By: ?Luis A Chou MD ? Signed By: ?<Electronically signed by Luis A Chou MD in OV> ?11/26/24 1432 ? DD/ 1404 ? TD/TT: 11/26/24 1420 ? Grain Farmer: ? Procedure Note Ludy Arizmendi - 11/26/[address] [address] XRay Report Signed Patient: Angy TierneyMR#: [id number] : 9Acct:[id number] Age/Sex: 64 / FADM Date: 11/26/24 Loc: HO.HHCX Attending Dr: Janice Johns MD Ordering Physician: Janice Baum MD Date of Service: 11/26/24 Procedure(s): XR foot LT min 3V Accession Number(s): [id number] cc: Janice Baum MD EXAMINATION: XR FOOT [...] A Chou MD 11/26/2024 02:32 PM EDT RP Dictated By: Luis A Chou MD Signed By: <Electronically signed by Luis A Chou MD in OV> 11/26/24 1432 DD/ 1404 TD/TT: 11/26/24 1420 Grain Farmer: us Janice Johns MD IMG XR PROCEDURES Fin al Result * (ABNORMAL) Hemoglobin A1c (01/22/2024 10:42 AM EDT) Hemoglobin A1c 6.1(H) <6.0 % [facility] Comment:Hemoglobin A1C Refer ence Range Adults: 4.8 - 6.0 % Non diabetic: < 6.0 % Goal: < 7.0 %Additional Action Suggested: > 8.0 %Note: Hemoglobin A1c results are invalid for patients with abnormal amounts of HbF. Blood transfusions may impact the HbA1c concentration in the patient sample. Estimated Average Glucose 128 mg/dL [facility] Comment:eAG = Estimated ave rage glucose which is %A1C expressed asaverage glucose, using the formula of the [id number] Glucose study (ADAG), Diabetes Care, Vol.31,#8,Apr. 2007 Blood Venous blood specimen / Unknown 01/22/2024 10:42 AM EDT 01/22/2024 11:25 AM EDT us Patricia Douglass MD LAB BLOOD ORDERABLES Final Res ult [facility] [address] [place] [address] [phone] * Hepatitis C Antibody with Reflex to HCV, RNA, Quantitative, Real-Time PCR (01/13/2023 11:04 AM EDT) Hepatitis C Antibody NON-REACT DALTON NON-REACT DALTON [facility] [place] [facility] Index 0.53 <1.00 [facility] [place] [facility] Comment: HCV antibody was non-reactive. There is no laboratory evidence of HCV infection. In most cases, no further action is required. However, if recent HCV exposure is suspected, a test for HCV RNA (test code 84249) is suggested. For additional information please refer to http://education.CloudPay/faq/EZU69q8 (This link is being provided for informational/ educational purposes only.) Blood Venous blood specimen / Unknown 01/13/2023 11:04 AM EDT 01/13/2023 11:05 AM EDT us Patricia Douglass MD LAB BLOOD ORDERABLES Final Res ult Performing Organization Address City/[facility] Co de Phone Number [facility] [address], [place] [address] [facility] [place] [facility] [address] [place] [address] * 3D BILATERAL DIAGN MAMMO 1 (12/11/2018 2:30 PM EDT) Anatomical Region Laterality Modality Breast Bilateral Mammography 12/11/2018 2:30 PM EDT Narrative 12/11/2018 2:31 PM EDT Refer to the Notes tab for result details [facility] Procedure: 3D BILATERAL DIAGN MAMMO 1 Procedure Note ProviderJuan M MD - 12/10/2022 Refer to the Notes tab for result details [facility] Procedure: 3D BILATERAL DIAGN MAMMO 1 us Jalen Herring FIVE [employer]CE [employer]ION MAKER HAND IMG BI PROCEDURES Final Result * Hm Colonoscopy (03/26/2013) Colonoscopy Normal Normal Narrative Ary Wilson - 03/26/2013 Repeat in 5 years Historical Provider HEALTH MAINTENANCE Final Result from Last 3 Months or Most Recently Relevant to Health Maintenance Insurance MEDICARE Care Teams Lamination Technician Relationship Specialty Start Date End Date Patricia Douglass MD [address] [place] [address] PCP - General Family Medicine 05/18/20
== END 2024-11-26 14:04 | disposition home or self-care (01) ==
LOC: HO.HHCX 14:03
PROVIDERS: Visit Provider Internal Medicine
DX: M79.672 Pain in left foot (principal)
CPT/HCPCS: 73630

== ENCOUNTER → 2024-11-26 14:04 | Outpatient (BNV) | payer MEDICAID, SELFPAY | PROVIDERS: Visit Provider Radiology Diagnostic Radiology | DX: M79.672 Pain in left foot (principal) | CPT/HCPCS: 73630 ==

== ENCOUNTER 2025-01-26 10:52 | Emergency (ER) | payer MEDICARE, MEDICAID, SELFPAY ==
[2025-01-26 11:04] VITALS: BP 170/104; PULSE 110; RESP 19; TEMP 36.6; O2SAT 98; BMI 27.1
--- NOTE | 2025-01-26 11:07 | ED_ITS ---
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 patient reports atraumatic left foot pain for the last 2 months. She was seen here a few weeks ago at the [facility] and told that she has plantar fasciitis. She reports that she does not have transportation so she is walking excessively she is prediabetic denies any rashes, swelling, wounds to the left foot she has no pain at rest but only when she is bearing weight on the left foot Related Data Home Medications ?Medication ?Instructions ?Recorded ?Confirmed albuterol sulfate 2.5 mg/3 mL 2.5 mg inhalation TID 01/20/22 (0.083 %) solution for nebulization albuterol sulfate 90 mcg/actuation 2 puff PO QID PRN 01/20/22 aerosol inhaler (ProAir HFA) cetirizine 10 mg tablet 10 mg PO DAILY 01/20/22 fluoxetine 20 mg capsule 20 mg PO DAILY 01/20/22 fluticasone propionate 230 2 puff PO 01/20/22 mcg-salmeterol 21 mcg/actuation HFA inhaler (Advair HFA) lorazepam 0.5 mg tablet 0.25 mg PO BID 01/20/22 montelukast 10 mg tablet 10 mg PO DAILY 01/20/22 zolpidem 5 mg tablet 5 mg PO BEDTIME PRN 01/20/22 Previous Rx's ?Medication ?Instructions ?Recorded omalizumab 150 mg subcutaneous 375 mg subcut Q2W 28 days #6 ea 07/06/21 solution (Xolair) tramadol 50 mg tablet 50 mg PO Q6H PRN pain #9 tabs 01/26/25 Allergies Allergy/AdvReac Type Severity Reaction Status Date / Time codeine [CODEINE] Allergy Intermediate HALLUCINATI Verified 01/26/25 11:07 ONS Review of Systems Constitutional: Constitutional: Denies body ache(s), Denies chills, Denies fever(s) and Denies frequent falls Eyes: Eyes: Denies blurry vision ENT: Denies dysphagia, Denies vertigo and Denies dizziness Gastrointestinal: Gastrointestinal: Denies dysphagia Integumentary/Breasts: Skin/Breast: Denies erythema, Denies rash, Reports skin pain, Denies skin swelling, Denies skin ulcer and Denies wounds Neurologic: Denies vertigo, Denies dizziness and Denies frequent falls Psychiatric: Psychiatric: Denies anxiety PMFSH Past Medical History Medical History Asthma Hyperlipemia Social History Social History (Updated 01/20/22 @ 10:51 by KANDACE Bauer) Patient Tobacco Use Status: Never used Tobacco Smoked in Last 30 Days: No Use of substances other than those prescribed or required for medical reasons: No Advance Directives: No Advance Directives Information Provided: No Do you have a plan to hurt others: No Plan Physical Exam ED Vital Signs: Vital Signs - 24 hr 01/26/25 11:04 01/26/25 11:22 01/26/25 11:41 Temperature 98 F 97.9 F 97.9 F Pulse Rate 110 H 88 88 Respiratory Rate 19 14 14 Blood Pressure 170/104 H 167/90 H 167/90 H Pulse Oximetry 98 97 97 Oxygen Delivery Method Room Air Room Air BMI result Body Mass Index 27.1 Const General: healthy appearing, comfortable, no acute distress, alert and awake Nutritional Appearance: well nourished Orientation/consciousness: patient oriented x3 HENMT Head: Yes normocephalic and Yes atraumatic Eyes Eyelids: Yes eyelids normal Conjunctivae: conjunctivae normal Sclerae: sclerae normal Corneas: corneas normal Pupils: Equal, round and reactive pupils present EOM: EOMs intact bilaterally Neck Neck: Yes full ROM Resp Effort & Inspection: normal respiratory effort, able to speak in complete sentences and not labored Skin Other: no skin change including erythema, ecchymosis or wounds, rashes to the left foot General skin exam: elasticity normal Neuro General: patient oriented x3 Cranial nerves: Yes Equal, round and reactive pupils present and Yes Bilaterally intact EOM present Cognition (Neuro): normal cognition Extrem Other: Moving all extremities well without any obvious deformities. patient has tenderness to deep palpation of the left plantar fascia. Course Course Course Narrative: RME performed by Brittany Nelson PA-C. Patient is a 64 year old assigned female at presenting to the emergency department with left foot pain. Patient states that she is having left heel pain when stepping on it. Patient states that she was already diagnosed with plantar fasciitis but it isn't getting better. Detailed physical exam and review of systems are deferred to the patient coordinator. Patient placed back in the waiting room pending room availability Medications Administered Discontinued Medications Generic Name Dose Route Start Last Admin Trade Name Freq PRN Reason Stop Dose Admin Ketorolac Tromethamine 30 mg 01/26/25 11:29 01/26/25 11:33 Ketorolac Tromethamine 30 Mg/Ml Vial IM 01/26/25 11:30 30 mg ONCE ONE Administration Medical Decision Making Medical Decision Making MDM Narrative: 64-year-old female presents for evaluation of atraumatic left foot pain. She had an outpatient x-ray less than 2 months ago that showed soft tissue calcification on the plantar aspect of the foot. Her history exam is consistent with plantar fasciitis. We will feed her to pain management orthopedic surgery for further outpatient evaluation and management. The patient be given a 3 day supply of tramadol. we will treat her acute pain with Toradol and she will be discharged Differential Diagnosis Differential Diagnoses: The differential diagnosis associated with the presentation includes plantar fasciitis Left foot pain Foreign body Foot sprain tendonitis Tests considered The following testing was considered but not selected: consider x-ray of the left foot but this was done less than 2 months ago. Discharge Plan Discharge Clinical Impression: Plantar fasciitis of left foot Patient Disposition: Home, Self-Care Instructions: Plantar Fasciitis (ED), Plantar Fasciitis Exercises (ED) Additional Instructions: I agree with your diagnosis of plantar fasciitis. You may continue using ibuprofen for pain I recommend that you try to avoid walking as much as possible for the next few days You should tried to perform the exercises that we discussed you may use tramadol for severe breakthrough pain this may make you drowsy, do not drink alcohol or drive after taking it you may follow up with Orthopedic surgery and pain management for your pain Prescriptions: New tramadol 50 mg tablet 50 mg PO Q6H PRN (Reason: pain) Qty: 9 0RF No Action Xolair 150 mg recon soln 375 mg subcut Q2W 28 Days Qty: 6 12RF Rx Instructions: requires multiple injection sites; do not exceed 150 mg per injection site Advair HFA 230-21 mcg/actuation HFA aerosol inhaler 2 puff PO fluoxetine 20 mg capsule 20 mg PO DAILY zolpidem 5 mg tablet 5 mg PO BEDTIME PRN montelukast 10 mg tablet 10 mg PO DAILY lorazepam 0.5 mg tablet 0.25 mg PO BID albuterol sulfate 2.5 mg /3 mL (0.083 %) solution for nebulization 2.5 mg inhalation TID albuterol sulfate [ProAir HFA] 90 mcg/actuation HFA aerosol inhaler 2 puff PO QID PRN cetirizine 10 mg tablet 10 mg PO DAILY [place] [facility] [place] Group[place] ( plantar fasciitis) [facility] [place]] (left heel pain) Interventions: ED Discharge Assessment Last Done: 01/26/25 11:41 Discharge Date/Time: 01/26/25 11:53 Print Language: Solomon Islander
[2025-01-26 11:22] VITALS: BP 167/90; PULSE 88; RESP 14; TEMP 36.6; O2SAT 97
[2025-01-26] MEDS: Ketorolac Tromethamine 30 MG/ML VIAL IM (11:33)
--- NOTE | 2025-01-26 11:36 | PC.NURSE ---
PAtient A&O x 4. Maltese speaking. Patient presents to ED c/o left heel pain. Patient has dx of plantar fasc. Patient denies pain at rest but on movement pain can reach 10/10. Patient denies any recent injuries. Patient was seen by provider. Tordol order/administered for temporary pain relief, effectiveness pending. VSS and up to date. Plan of care on going
[2025-01-26 11:41] VITALS: BP 167/90; PULSE 88; RESP 14; TEMP 36.6; O2SAT 97
--- NOTE | 2025-01-26 11:50 | PC.NURSE ---
Medication somewhat effect, as stated by patient. Discharge performed
== END 2025-01-26 11:53 | disposition home or self-care (01) ==
PROVIDERS: Emergency Provider Emergency Medicine Emergency Medical Services; PCP General Practice
DX: M72.2 Plantar fascial fibromatosis (principal); M79.605 Pain in left leg; Z79.899 Other long term (current) drug therapy
CPT/HCPCS: 96372; 99284; J1885

== ENCOUNTER 2025-02-07 10:19 | Outpatient (AMB) | payer MEDICARE, MEDICAID, SELFPAY ==
--- OUTSIDE RECORDS SUMMARY | 2025-02-07 10:30 | XMS_ITS | Encounter Summary ---
Author Organization [employer] Address [address] [place] [address] Care Team Providers Care Laborer Car Barn Name Role Phone Patricia Douglass MD Primary Care Provider [phone] Encounter Details Date Type Department Care Team (Late st Contact Info) Description 08/08/2023 Abstract [facility] [address] [place], [place] [phone] Ary Wilosn Social History Tobacco Use Types Packs/Day Years [...] as of this encounter Plan of Treatment Upcoming Encounters Date Type Department Care Team (Late st Contact Info) Description 03/24/2025 10:30 AM EDT Clinical Support [facility] [address] [place] [phone] Nicole Portillo RN 04/21/2025 2:15 PM EDT Office Visit [facility] [address] [place] [phone] Patricia Douglass MD [address] [place] [address] [phone] documented as of this encounter Procedures Procedure Name Priority Date/Time Associated Diagnosis Comments COLONOSCOPY Routine 03/26/2013 documented in this encounter Results * Colonoscopy (03/26/2013) Colonoscopy Normal Normal Narrative Ary Wilson - 03/26/2013 Repeat in 5 years us Historical Provider HEALTH MAINTENANCE Final Result documented in this encounter Visit Diagnoses Not on filedocumented in this encounter Additional Health Concerns Assessment Noted Time PHQ-9 Depression Total Score: 4 07/17/20 23 11:02 AM EDT documented as of this encounter Care Teams Laborer Car Barn Relationship Specialty Start Date End Date Patricia Douglass MD [address] [place] [address] [phone] PCP - General Family Medicine 05/18/20 documented as of this encounter
--- NOTE | 2025-02-07 10:38 | A.OFFVIS_ITS ---
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 PMC REFERRAL FOR LEG PAIN Tube Cleaning Operator Required: Yes Tube Cleaning Operator Services: Tube Cleaning Operator Present Tube Cleaning Operator Name: Rolo [id number] Allergies codeine [CODEINE] Allergy (Intermediate, Verified 02/07/25 10:42) HALLUCINATIONS Medication List - Last Reconciled 02/07/25 by Brittany Duff LPN albuterol sulfate 2.5 mg inhalation TID albuterol sulfate 90 mcg/actuation (ProAir HFA) 2 puffs PO QID PRN cetirizine 10 mg PO DAILY fluoxetine 20 mg PO DAILY fluticasone propion-salmeterol 230-21 mcg/actuation (Advair HFA) 2 puffs PO lorazepam 0.25 mg PO BID montelukast 10 mg PO DAILY zolpidem 5 mg PO BEDTIME PRN HPI HPI 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 She started experiencing foot pain since December, which has been debilitating, limiting her mobility and everyday activities. During a prior visit to the emergency department for back and leg pain, no advanced interventions were pursued. The presence of a heel spur was identified, and although the possibility of injection was mentioned at another clinic, the patient was advised to first pursue physical therapy to alleviate the pain before considering injections. She is apprehensive about surgical approaches considering potential non-optimistic outcomes and is encouraged to try conservative therapies, including physical therapy. She has not yet started physical therapy due to certain constraints but understands its importance. The patient is keen on finding effective pain relief to maintain her daily functions and seeks further evaluation for her prevalent symptoms. Pain Description - Onset and Timing: Foot pain since December. - Quality and Character: Pain restrictive to mobility, significant discomfort affecting walking. - Primary Location: Foot, heel spur causing significant discomfort. - Areas of Radiation: Not explicitly mentioned. - Exacerbating Factors: Activity/aggravated by walking. - Relieving Factors: Medication creams used, but not effective. - Interference: Pain severely impacts walking and daily functioning. - Relief Attempts: Visited emergency care for other pains, using creams, avoiding certain activities. Physical Exam - Appears afebrile. - Alert and oriented. - Mood and affect appropriate. - Follows and participates in conversation appropriately. - Antalgic gait due to foot pain. Pain Management - Affect: Pain impacting patient's mobility and quality of life, causing distress about limited activities. - Analgesia: Patient has been using medication creams, yet finds the results inadequate. Wishes to explore injection for quicker relief. - Adverse Effects: Concerns regarding medication use due to past history of ulcers and potential complications with injections. - Activities of Daily Living: Mobility greatly hindered, notably affecting walking and independence. - Aberrant Drug Related Behaviors: None reported or discussed. [facility] Medical History Asthma Hyperlipemia Social History (Updated 01/20/22 @ 10:51 by Cherelle Morales [facility]) Patient Tobacco Use Status: Never used Tobacco Physical Exam Vital Signs: Last Vital Signs Pulse 113 H 02/07/25 10:40 Resp 6 L 02/07/25 10:40 BP 138/88 02/07/25 10:40 Pulse Ox 96 02/07/25 10:40 Oxygen Delivery Method Room Air 02/07/25 10:40 BMI result Body Mass Index 27.7 Assessment & Plan Assessment & Plan (1) Plantar fasciitis: Code(s): M72.2 - Plantar fascial fibromatosis Category: Medical Plan Plan - Initiate physical therapy for three to four weeks for plantar fasciitis pain relief. - Consider a foot injection post-physical therapy evaluation and progress. - Follow-up in two weeks to assess therapy effects and make decision regarding foot injection. Patient was informed and verbally consented to the use of an ambient scribe for clinic note documentation during this visit. Discussion Notes During the visit, I discussed in detail with the patient about managing her foot pain through a staged approach. I explained the importance of initiating physical therapy before considering an injection to mitigate risks. The conservative route, starting with therapy, was emphasized due to its lower invasive nature and potentially avoiding surgical intervention. Risks associated with injections, such as tearing of the plantar fascia, were clearly elaborated to ensure the patient understood the potential ramifications of intervening too early. A follow-up was planned in two weeks to reassess her condition and the effectiveness of therapy, only then consider proceeding with injection therapy if pain persisted and therapy proved insufficient. The patient was instructed on scheduling physical therapy and consented to the outlined plan of care. Patient Instructions - Start physical therapy as prescribed. Schedule an appointment as soon as possible. - Attend your therapy sessions consistently for effective pain relief. - Return in two weeks for follow-up to discuss further treatment, including possible foot injection. - Keep track of any other symptoms or changes in pain levels to discuss at the next visit. - Avoid activities that exacerbate pain until therapy starts. Orders: Orders PT Evaluation and Treatment 02/07/25 M72.2 - Plantar fascial fibromatosis Coding Level of Care Code New Pt Level 3 (87531) Diagnoses Plantar fasciitis M72.2
[2025-02-07 10:40] VITALS: BP 138/88; PULSE 113; RESP 6; O2SAT 96; BMI 27.7
== END 2025-02-07 11:23 | disposition home or self-care (01) ==
LOC: HO.PMC 10:19
PROVIDERS: PCP General Practice; Visit Provider Internal Medicine
DX: M72.2 Plantar fascial fibromatosis (principal)
CPT/HCPCS: 99203

== ENCOUNTER → 2025-02-07 10:19 | Outpatient (BNVA) | payer MEDICARE, MEDICAID, SELFPAY | PROVIDERS: PCP General Practice; Visit Provider Internal Medicine | DX: M72.2 Plantar fascial fibromatosis (principal) | CPT/HCPCS: 99202 ==

== ENCOUNTER 2025-02-14 09:15 | Outpatient (AMB) | payer MEDICARE, MEDICAID, SELFPAY ==
--- OUTSIDE RECORDS SUMMARY | 2025-02-14 09:27 | XMS_ITS | Encounter Summary ---
Author Organization [employer] Address [address] [place] [address] Care Team Providers Care Chili Maker Name Role Phone Patricia Douglass MD Primary Care Provider [phone] Encounter Details Date Type Department Care Team (Late st Contact Info) Description 08/08/2023 Abstract [facility] [address] [place], [place] [phone] Ary Wilson Social History Tobacco Use Types [...] Description 03/24/2025 10:30 AM EDT Clinical Support [facility] [address] [place] [phone] Nicole Portillo RN 04/21/2025 2:15 PM EDT Office Visit [facility] [address] [place] [phone] Patricia Douglass MD [address] [place] [address] [phone] documented as of this encounter Procedures Procedure [...] documented as of this encounter Care Teams Chili Maker Relationship Specialty Start Date End Date Patricia Douglass MD [address] [place] [address] [phone] PCP - General Family Medicine 05/18/20 documented as of this encounter
--- NOTE | 2025-02-14 09:31 | A.OFFVIS_ITS ---
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 Hot Strip Mill Inspector Required: No Hot Strip Mill Inspector Services: Hot Strip Mill Inspector Offered & Declined Hot Strip Mill Inspector Name: Prefers son to translate Communicable Disease Specialist: Communicable Disease Specialist Present Accompanied by: Khalif Nazario Allergies codeine [CODEINE] Allergy (Intermediate, Verified 02/14/25 09:34) HALLUCINATIONS Medication List - Last Reconciled 02/14/25 by Brittany Duff LPN albuterol sulfate 2.5 mg inhalation TID albuterol sulfate 90 mcg/actuation (ProAir HFA) 2 puffs PO QID PRN cetirizine 10 mg PO DAILY fluoxetine 20 mg PO DAILY fluticasone propion-salmeterol 230-21 mcg/actuation (Advair HFA) 2 puffs PO lorazepam 0.25 mg PO BID montelukast 10 mg PO DAILY zolpidem 5 mg PO BEDTIME PRN HPI HPI LEFT FOOT INJECTION: Details: History of Present Illness The patient is a 64-year-old female presenting with pain management concerns related to plantar fasciitis. The condition is significantly impacting her daily activities and quality of life, with persistent and bothersome symptoms despite prior conservative treatment approaches, including the advice to try physical therapy. Despite memorial counselor on risks, she prefers to pursue an injection for immediate relief. The primary concern is the debilitating nature of the pain, motivating her decision to pursue the injection prior to engaging in alternative therapy routes previously recommended. Pain Description - Onset: Prior to this visit - Quality: Severe enough to drive significant distress - Location: Plantar fascia area - Exacerbating factors: None explicitly mentioned - Relieving factors: None explicitly mentioned - Impact on activities: Significantly interferes with daily activities Physical Exam Results - Tests: Ultrasound guidance utilized during the procedure, images saved Pain Management - Affect: Pain is causing significant distress to the patient - Analgesia: Interested in injection as immediate relief, aware of the worsening risks - Adverse Effects: Noted possibility of worsening symptoms following injection - Activities of Daily Living: Pain is significantly interfering with daily activities - Aberrant Drug Related Behaviors: None mentioned Procedure: Plantar fascia injection, US guided - Informed consent was obtained from the patient. - The site was cleaned with Chloroprep and ethyl chloride spray was applied. - A 25-gauge needle was used, advanced under ultrasound guidance to the medial calcaneal tubercle, deep to the fascia. - Injection was performed at the medial calcaneal tubercle. - The patient tolerated the procedure well. - Ultrasound images of the injection were saved. [facility] Medical History Asthma Hyperlipemia Social History (Updated 01/20/22 @ 10:51 by Cherelle Morales [facility]) Patient Tobacco Use Status: Never used Tobacco Physical Exam Vital Signs: Last Vital Signs Pulse 97 02/14/25 09:33 Resp 16 02/14/25 09:33 BP 150/72 H 02/14/25 09:33 Pulse Ox 96 02/14/25 09:33 Oxygen Delivery Method Room Air 02/14/25 09:33 BMI result Body Mass Index 26.9 Assessment & Plan Assessment & Plan (1) Plantar fasciitis: Code(s): M72.2 - Plantar fascial fibromatosis Category: Medical Plan Plan - Administered injection for plantar fasciitis under ultrasound guidance. - Plan continued monitoring of symptoms and response. - Encourage follow up with recommended physical therapy to enhance recovery and prevent recurrence. Patient was informed and verbally consented to the use of an ambient scribe for clinic note documentation during this visit. Discussion Notes I discussed with the patient the primary diagnosis of plantar fasciitis and the various management options available, including physical therapy and the administration of a plantar fasciitis injection. Detailed the potential risks, benefits, and alternatives of these treatment paths. The patient was informed about the possibility of symptom exacerbation with the proposed injection and expressed understanding and agreement to proceed. We have documented the procedure and set a course for follow-ups as needed, ensuring the patient is aware of the necessity to adhere to physical therapy recommendations to improve long-term outcomes. Patient Instructions - Follow up with physical therapy as advised. - Report any increase in pain or adverse reactions immediately. - Rest and avoid activities that exacerbate the foot pain. - Attend follow-up appointments to monitor progress. Coding Level of Care Code Procedure Only Diagnoses Plantar fasciitis M72.2
[2025-02-14 09:33] VITALS: BP 150/72; PULSE 97; RESP 16; O2SAT 96; BMI 26.9
== END 2025-02-14 10:18 | disposition home or self-care (01) ==
LOC: HO.PMC 09:16
PROVIDERS: PCP General Practice; Visit Provider Internal Medicine
DX: M72.2 Plantar fascial fibromatosis (principal)
CPT/HCPCS: 20550

== ENCOUNTER → 2025-02-14 09:15 | Outpatient (BNVA) | payer MEDICARE, MEDICAID, SELFPAY | PROVIDERS: PCP General Practice; Visit Provider Internal Medicine | DX: M72.2 Plantar fascial fibromatosis (principal) | CPT/HCPCS: 20550 ==